=== PATIENT | male | born 1965 | race Two or more races ===

== ENCOUNTER 2018-12-02 23:55 | Inpatient (IN) | payer SELFPAY ==
[~2018-12-02] VITALS: Ht 170.2 cm; Wt 84.8 kg
[2018-12-03] MEDS ORDERED: ACETAMINOPHEN 500 MG TAB PO ONE (00:45)
[2018-12-03] MEDS ORDERED: IBUPROFEN 400 MG TAB PO ONE (10:15)
[2018-12-03] MEDS ORDERED: ACETAMINOPHEN 325 MG TAB PO ONE (10:15)
[2018-12-03] MEDS ORDERED: SODIUM CHLORIDE 0.9% 1,000 ML IV ONE (10:35)
[2018-12-03] MEDS ORDERED: cefTRIAXone 1GM/50ML D5W 50 ML IV ONE (10:45)
[2018-12-03] MEDS ORDERED: AZITHROMYCIN 500MG/ 250ML 250 ML IV ONE (10:45)
[2018-12-03 11:04] LABS: Basophils # (auto) 0 uL; Basophils % (auto) 0.5 % (0.0-2.0); Eosinophils # (auto) 0 uL; Eosinophils % (auto) 0.1 % (0.0-7.0); Hematocrit 43.4 % (41.0-53.0); Hemoglobin 14.7 g/dL (13.5-17.5); Lymphocytes % (auto) 14.8 % (10.0-50.0); Mean Corpuscular Hemoglobin 28.6 pg (28.0-32.0); Mean Corpuscular Hgb Conc. 33.8 g/dL (32.0-36.0); Mean Corpuscular Volume 84.6 fL (80.0-100.0); Monocytes % (auto) 15.3 % (0.0-12.0); Neutrophils # (auto) 4.6 uL; Neutrophils % (auto) 69.3 % (37.0-80.0); Platelet Count (auto) 250 10^3/uL (140-450); Red Blood Cells 5.13 10^6/uL (4.5-5.90); Red Cell Distribution Width 13.8 % (11.8-14.3); White Blood Cell 6.7 10^3/uL (4.4-10.8)
[2018-12-03 11:23] LABS: Albumin 3.5 g/dL (3.4-5.0); Calcium 8.3 mg/dL (8.5-10.1); Potassium 3.5 mmol/L (3.5-5.1)
[2018-12-03 11:28] LABS: BUN/Creatinine Ratio 12.6; Bilirubin, Total 0.6 mg/dL (0.2-1.0); Total Protein 8.2 g/dL (6.4-8.2)
[2018-12-03 11:35] LABS: INR 1.03 (0.9-1.15); Partial Thromboplastin Time 31.7 sec (23.78-33.04)
[2018-12-03] MEDS ORDERED: MORPHINE SULF INJ 2 MG/ML SYRINGE 1ML IV PRN ×2 (11:45)
[2018-12-03] MEDS ORDERED: ONDANSETRON HCL 4 MG/2 ML VIAL IV PRN (11:45)
[2018-12-03] MEDS ORDERED: NITROGLYCERIN 0.4 MG SL TAB SL PRN (11:45)
[2018-12-03] MEDS: SODIUM CHLORIDE 0.9% 1,000 ML IV SCH ×2 (12:34→21:45)
[2018-12-03] MEDS: IPRATROPIUM BROM 0.5 MG/2.5ML INH SOL NEB SCH ×2 (12:39→18:00)
[2018-12-03] MEDS: ALBUTEROL SULF 2.5 MG/0.5ML(0.5%) NEB SOLN NEB SCH ×2 (12:39→18:00)
[2018-12-03 13:05] VITALS: BP 133/72
[2018-12-03] MEDS: ACETAMINOPHEN 500 MG TAB PO PRN (18:22)
[2018-12-03 20:25] VITALS: BP 134/85
--- NOTE | 2018-12-03 20:25 | NUR ---
MS admit from ER RAYMOND BAEZ admitted to tele/MS after SBAR received. Patient oriented to Ana María Jaimes, primary RN, unit, room, bed, and unit policies regarding patient care and visiting hours. Patient weighed by bedscale and encouraged to call if they need something. All questions and concerns addressed, patient verbalized understanding. Note: ALERT AND ORIENTED X 4. DENIES PAIN AND DISCOMFORT AT THIS TIME. CALL LIGHT WITHIN REACH AND BED IN LOW POSITION.
[2018-12-03 20:30] VITALS: BP 134/85
[2018-12-03 22:00] VITALS: BP 134/85
[2018-12-04] MEDS: ACETAMINOPHEN 500 MG TAB PO PRN (01:05)
[2018-12-04 04:54] VITALS: BP_SYST 115
[2018-12-04] MEDS: ALBUTEROL SULF 2.5 MG/0.5ML(0.5%) NEB SOLN NEB SCH ×3 (06:23→20:24)
[2018-12-04] MEDS: IPRATROPIUM BROM 0.5 MG/2.5ML INH SOL NEB SCH ×3 (06:23→20:24)
[2018-12-04 06:32] LABS: Basophils # (auto) 0 uL; Basophils % (auto) 0.7 % (0.0-2.0); Eosinophils # (auto) 0 uL; Eosinophils % (auto) 0.4 % (0.0-7.0); Hemoglobin 13.7 g/dL (13.5-17.5); Lymphocytes # (auto) 1.5 uL; Lymphocytes % (auto) 24.3 % (10.0-50.0); Mean Corpuscular Hemoglobin 28.2 pg (28.0-32.0); Mean Corpuscular Hgb Conc. 33.4 g/dL (32.0-36.0); Mean Corpuscular Volume 84.5 fL (80.0-100.0); Monocytes % (auto) 16.3 % (0.0-12.0); Neutrophils # (auto) 3.5 uL; Neutrophils % (auto) 58.3 % (37.0-80.0); Nucleated Red Blood Cells % 0.1 %; Platelet Count (auto) 272 10^3/uL (140-450); Red Blood Cells 4.85 10^6/uL (4.5-5.90)
[2018-12-04 06:49] LABS: Cholesterol 143 mg/dL (< 200)
[2018-12-04 06:51] LABS: BUN/Creatinine Ratio 12.2; HDL Cholesterol 26 mg/dL (40-59); LDL Cholesterol 105 mg/dL (< 100); Potassium 3.4 mmol/L (3.5-5.1); Triglycerides 131 mg/dL (< 150)
[2018-12-04 08:31] VITALS: BP 124/79
[2018-12-04] MEDS: HYDROcodone-ACET 5/325MG TAB PO PRN ×2 (10:00→16:38)
[2018-12-04] MEDS: PANTOPRAZOLE 40 MG/10 ML VIAL IV SCH (10:00)
[2018-12-04] MEDS ORDERED: cefTRIAXone 1GM/50ML D5W 50 ML IV SCH (10:00)
[2018-12-04] MEDS: AZITHROMYCIN 500MG/ 250ML 250 ML IV SCH (11:04)
[2018-12-04 12:30] VITALS: BP 130/92
[2018-12-04] MEDS: SODIUM CHLORIDE 0.9% 1,000 ML IV SCH ×2 (16:28→17:45)
[2018-12-04 17:00] VITALS: BP 119/82
--- NOTE | 2018-12-04 17:06 | NUR ---
assessment Per consult no PCP. Erin Galicia to see patient for PCP. Addendum: 12/04/18 at 1707 by Erin Turner Amended: Links added.
--- NOTE | 2018-12-04 19:30 | NUR ---
OPENING NOTE REPORT RECEIVED FROM DAY SHIFT RN PATIENT IS A/OX4 RESTING IN BED, SIGNIFICANT OTHER IS AT BEDSIDE. POC FOR TONIGHT, ALL QUESTIONS ANSWERED. NO S/S OF DISTRESS NOTED AT THIS TIME. WILL CONTINUE TO MONITOR. CALL LIGHT WITHIN REACH.
[2018-12-04 22:00] VITALS: BP 129/85
[2018-12-05] MEDS: SODIUM CHLORIDE 0.9% 1,000 ML IV SCH ×3 (03:54→23:47)
[2018-12-05 05:00] VITALS: BP 114/80
[2018-12-05] MEDS: IPRATROPIUM BROM 0.5 MG/2.5ML INH SOL NEB SCH ×3 (06:20→20:10)
[2018-12-05] MEDS: ALBUTEROL SULF 2.5 MG/0.5ML(0.5%) NEB SOLN NEB SCH ×3 (06:20→20:10)
--- NOTE | 2018-12-05 07:18 | NUR ---
CLOSING NOTE REPORT ENDORSED TO DAY SHIFT RN PATIENT IS RESTING AT THIS TIME. NO S/S OF DISTRESS NOTED CALL LIGHT WITHIN REACH
[2018-12-05 09:00] VITALS: BP 116/81
[2018-12-05] MEDS: AZITHROMYCIN 500MG/ 250ML 250 ML IV SCH (10:09)
[2018-12-05] MEDS: PANTOPRAZOLE 40 MG/10 ML VIAL IV SCH (10:09)
[2018-12-05] MEDS: CEFTRIAXONE SODIUM 2 GM in D5W 5% 50 ML IV SCH (11:01)
[2018-12-05 13:00] VITALS: BP 113/72
[2018-12-05 16:36] VITALS: BP 118/87
--- NOTE | 2018-12-05 19:30 | NUR ---
OPENING NOTE REPORT RECEIVED FROM DAY SHIFT RN PATIENT IS RESTING IN BED WITH SIGNIFICANT OTHER AT BEDSIDE. PHYSICAL ASSESSMENT DONE-SEE INTERVENTIONS. POC FOR TONIGHT DISCUSSED, ALL QUESTIONS ANSWERED. CALL LIGHT WITHIN REACH.
--- NOTE | 2018-12-05 20:59 | NUR ---
TELE BOX CHANGED TO [facility] #40
[2018-12-05 21:50] VITALS: BP 118/77
[2018-12-06] VITALS (8 sets, daily range): BP systolic 107–123; BP diastolic 71–89
[2018-12-06] MEDS: ALBUTEROL SULF 2.5 MG/0.5ML(0.5%) NEB SOLN NEB SCH ×3 (07:06→18:38)
[2018-12-06] MEDS: IPRATROPIUM BROM 0.5 MG/2.5ML INH SOL NEB SCH ×3 (07:07→18:37)
--- NOTE | 2018-12-06 07:25 | NUR ---
OUT OF BED PT OUT OF BED TO RESTROOM, AMBULATED INDEPENDENTLY, NO DISTRESS/SOB/PAIN NOTED
--- NOTE | 2018-12-06 07:27 | NUR ---
CLOSING NOTE REPORT ENDORSED TO DAY SHIFT RN PT IS SLEEPING, NO S.S OF DISTRESS NOTED CALL LIGHT WITHIN REACH
[2018-12-06] MEDS: CEFTRIAXONE SODIUM 2 GM in D5W 5% 50 ML IV SCH (10:00)
[2018-12-06] MEDS: PANTOPRAZOLE 40 MG/10 ML VIAL IV SCH (10:58)
[2018-12-06] MEDS: AZITHROMYCIN 250 MG TAB PO SCH (10:58)
[2018-12-06] MEDS: SODIUM CHLORIDE 0.9% 1,000 ML IV SCH ×2 (13:11→22:34)
--- NOTE | 2018-12-06 19:30 | NUR ---
Opening Shift Note Received report from victor hugo Fiore RN. Assumed care of patient, awake and alert, with lying in bed with at bedside. No S/S of distress/SOB or pain. Instructed on POC and to call for assist PRN, will continue to monitor for changes Q1hr and PRN. Bed placed in lowest position, bed alarm turned on and call light within reach.
[2018-12-07 05:00] VITALS: BP 122/82
[2018-12-07] MEDS: IPRATROPIUM BROM 0.5 MG/2.5ML INH SOL NEB SCH ×2 (07:15→11:28)
[2018-12-07] MEDS: ALBUTEROL SULF 2.5 MG/0.5ML(0.5%) NEB SOLN NEB SCH ×2 (07:15→11:28)
[2018-12-07 08:00] VITALS: BP 113/73
[2018-12-07 09:00] VITALS: BP 113/73
[2018-12-07] MEDS: PANTOPRAZOLE 40 MG/10 ML VIAL IV SCH (09:17)
[2018-12-07] MEDS: CEFTRIAXONE SODIUM 2 GM in D5W 5% 50 ML IV SCH (09:17)
[2018-12-07] MEDS: AZITHROMYCIN 250 MG TAB PO SCH (09:18)
--- NOTE | 2018-12-07 09:50 | NUR ---
VISITORS AT BEDSIDE
--- NOTE | 2018-12-07 10:05 | NUR ---
PT OUT OF BED AMBULATING HALLS WITH AT HIS SIDE, PT IS IN NO APPARENT DISTRESS/PAIN/SOB
--- NOTE | 2018-12-07 12:11 | NUR ---
MD ROUNDS DR LEE AT BEDSIDE WITH PT AND PT'S , NEW ORDER FOR D/C WILL BE PLACED, ALL QUESTIONS AND CONCERNS ADDRESSED
[2018-12-07 12:45] VITALS: BP 116/70
--- NOTE | 2018-12-07 13:32 | NUR ---
Discharge Instructions given as ordered. Encouraged to follow up with PMD as instructed, followup CXR in one week, take all meds as prescribed, All questions and concerns addressed. Patient and spouse verbalized understanding. Medication reconciliation form completed and copy given to patient. No home medications held in Pharmacy to return to patient, and no needed vaccines. IV removed with catheter intact, pressure dressing applied, no denny catheter to remove. Telemetry unit returned to [facility]. Patient taken to vehicle via wheelchair with all personal belongings, accompanied by staff and spouse/. No distress noted at time of departure.
== END 2018-12-07 14:27 | disposition home or self-care (01) | DRG 193 ==
LOC: ER 23:59 → OVERFLOW 12-03 11:40 → WEST WING 12-03 20:27 → TELE-WESTW 12-03 23:18
PROVIDERS: ADMIT Nurse Practitioner Acute Care; ATTEND Internal Medicine
DX: J18.1 Lobar pneumonia, unspecified organism (principal); I21.A1 Myocardial infarction type 2; E87.1 Hypo-osmolality and hyponatremia; R73.9 Hyperglycemia, unspecified; E86.0 Dehydration; E78.5 Hyperlipidemia, unspecified; Z87.891 Personal history of nicotine dependence; I25.10 Atherosclerotic heart disease of native coronary artery without angina pectoris
CPT/HCPCS: 36415; 71045; 71046; 80048; 80053; 80061; 83036; 84443; 84484; 85025; 85610; 85730; 87040; 87804; 93005; 93306; 94640; 96365; 96366; 96375; C9113; G0378; J0696; J7060